=== PATIENT | male | born 1955 | race Caucasian/White ===

== ENCOUNTER 2021-08-27 13:13 | Emergency (ER) | payer OTHER ==
[2021-08-27 15:34] LABS: BASOPHIL 0.8 % (0-2); EOSINOPHIL 1.6 % (0-7); HCT 44.7 % (42.0-52.0); HGB 15.1 g/dl (13.2-18.0); LYMPHOCYTE 25.7 % (15-48); MCH 27.4 pg (25.0-31.0); MCHC 33.8 g/dL (32.0-36.0); MCV 81.1 fL (78.0-100.0); MONOCYTE 7.7 % (0-12); MPV 9.8 fL (6.0-9.5); NEUTROPHIL 63.7 % (41-80); NRBC 0; RBC 5.51 M/uL (4.70-6.00); RDW 14.5 % (11.5-14.0); WBC 3.7 K/uL (4.0-10.5)
[2021-08-27 15:39] LABS: ALBUMIN 3.9 g/dL (3.4-5.0); BILIRUBIN - TOTAL 0.7 mg/dL (0.2-1.0); BUN/CREAT RATIO (CALC) 22.7 RATIO; CREATININE 0.75 mg/dL (0.67-1.17); GLOBULIN (CALCULATION) 3.6 g/dL; POTASSIUM 4.5 mmol/L (3.5-5.1); TOTAL PROTEIN 7.5 g/dL (6.4-8.2)
[2021-08-27 15:54] LABS: PLT 73 K/uL (150-400)
== END 2021-08-27 17:33 | disposition home or self-care (01) ==
LOC: FER 13:13
PROVIDERS: Physician Assistant
DX: E11.65 Type 2 diabetes mellitus with hyperglycemia (principal); Z79.84 Long term (current) use of oral hypoglycemic drugs
CPT/HCPCS: 36415; 36600; 80053; 82803; 85025